=== PATIENT | male | born 1935 | race Caucasian/White ===

== ENCOUNTER 2018-03-13 09:19 | Emergency (ER) | payer OTHER ==
[2018-03-13] MEDS ORDERED: SODIUM CHLORIDE 0.9% FLUSH 10 ML SOL IV PRN (09:58)
[2018-03-13 10:10] LABS: HEMATOCRIT 36 % (39-53); HEMOGLOBIN 12.3 gm/dl (13.5-17.7); MEAN CORPUSCULAR HGB CONC 34.1 gm/dl (32.0-36.0); MEAN CORPUSCULAR VOLUME 82 fL (80-100)
[2018-03-13 10:21] LABS: CALCIUM 8.3 mg/dl (8.5-10.1); CARBON DIOXIDE 27.4 mEq/L (21-32); CREATININE 1.01 mg/dl (0.80-1.30); INR 2.12 (0.86-1.12); POTASSIUM 3.8 mMol/L (3.5-5.1)
[2018-03-13 10:33] LABS: BAND NEUTROPHILS % (MANUAL) 2 %; BASOPHILS % (MANUAL) 0 % (0-3); EOSINOPHILS % (MANUAL) 0 % (0-9); LYMPHOCYTES % (MANUAL) 16 % (10-50); MONOCYTES % (MANUAL) 9 % (0-12); NEUTROPHILS % (MANUAL) 73 % (37-80); NORMAL RBCS PRESENT
[2018-03-13 12:31] VITALS: BP 128/78; PULSE 115; RESP 22; TEMP 100.1; O2SAT 93
== END 2018-03-13 13:15 | disposition home or self-care (01) | DRG 999 ==
LOC: ED 09:19
DX: W18.30XA Fall on same level, unspecified, initial encounter (principal); S09.90XA Unspecified injury of head, initial encounter; Z79.01 Long term (current) use of anticoagulants; I47.1 Supraventricular tachycardia; R40.2362 Coma scale, best motor response, obeys commands, at arrival to emergency department; R40.2142 Coma scale, eyes open, spontaneous, at arrival to emergency department; R40.2252 Coma scale, best verbal response, oriented, at arrival to emergency department; I50.9 Heart failure, unspecified
CPT/HCPCS: 70450; 71045; 80048; 83880; 85007; 85027; 85610; 93005; 99284; 99285

== ENCOUNTER 2018-09-15 10:58 | Emergency (ER) | payer OTHER ==
[2018-09-15 11:09] VITALS: TEMP 97.9
[2018-09-15] MEDS ORDERED: SODIUM CHLORIDE 0.9% 1000ML 1,000 ML IV ONE ×2 (11:21→13:30)
[2018-09-15] MEDS ORDERED: LEVOFLOXACIN 500 MG TAB PO ONE (11:44)
[2018-09-15] MEDS ORDERED: LEVOFLOXACIN 500 MG TAB ONE (11:45)
[2018-09-15] MEDS ORDERED: APAP/OXYCODONE 1 EACH TABLET PO ONE (12:43)
[2018-09-15] MEDS ORDERED: APAP/OXYCODONE 1 EACH TABLET ONE (12:44)
[2018-09-15] MEDS ORDERED: NOREPINEPHRINE BITARTRATE 4 MG/4 ML SOL IV ONE (13:24)
[2018-09-15] MEDS ORDERED: NOREPINEPHRINE 4 MG/4 ML 4 MG in DEXTROSE 500 ML 500 ML IV SCH (13:30)
[2018-09-15] MEDS ORDERED: PIPERACILLIN/TAZOBACT 3.375 GM 3.375 GM in SODIUM CHLORIDE 0.9% 100 ML 100 ML IV ONE (15:01)
[2018-09-15] MEDS ORDERED: PIPERACILLIN/TAZOBACT 3.375 GM PDS IV ONE (15:07)
[2018-09-15 15:40] VITALS: RESP 18
[2018-09-15 15:41] VITALS: BP 140/63; PULSE 72; O2SAT 93
== END 2018-09-15 15:30 | disposition short-term general hospital (02) | DRG 871 ==
LOC: ED 10:58
DX: A41.89 Other specified sepsis (principal); J18.9 Pneumonia, unspecified organism; I95.9 Hypotension, unspecified; R50.9 Fever, unspecified; R53.1 Weakness; R06.02 Shortness of breath
CPT/HCPCS: 36415; 84484; 87040; 96365; 96366; 99285; 99291; J2543; A9270-GY; J3490